=== PATIENT | male | born 2000 | race African-American/Black ===

== ENCOUNTER 2024-07-01 08:15 | Emergency (ER) | payer BC, SELFPAY ==
[2024-07-01 08:17] VITALS: BP 144/84
[2024-07-01 08:30] VITALS: BP 171/89
--- NOTE | 2024-07-01 08:49 | ED.GENMED ---
History of Present Illness
General
Chief Complaint: Chest Pain
Source: patient
Exam Limitations: none
Time Seen by Provider: 07/01/24 08:29
Nursing documentation reviewed up to this point in time: agreed with
History of Present Illness
History of Present Illness:
This 24-year-old male presenting to the emergency department today with concerns of central chest burning that occurred 1 hour prior to arrival to the emergency department. Mild no associated. This occurred after he took his medication awakening
early this morning with back to sleep then woke up with the discomfort denies any referred or radiating pain. Denies any exertional component. Denies similar symptoms in the past. Denies significant shortness of breath at this point, nausea
vomiting.
Past History
Past History
ED Past Medical History: Psychiatric (ADHD, depression) and Other (Seasonal allergies)
ED Past Surgical History: None
Social History
Tobacco: Non-smoker
Review of Systems
Review of Systems
Allergies reviewed?: Yes
All Other Systems: ROS reviewed and negative except as documented in HPI and ROS
Phy Exam
Physical Exam
Physical Exam:
GENERAL: Alert , in no apparent distress
EYE: pupils equal and reactive
NECK: Supple, no significant adenopathy.
ENT: o/p clr, mmm.
CARDIAC: Regular rate and rhythm .
LUNGS: Clear breath sounds bilaterally, no acute respiratory distress, no wheezes/rales/rhonchi
ABDOMEN: Soft, without focal tenderness, no r/g, no cvat
NEUROLOGICAL: Alert and oriented, no focal neuro deficits
SKIN: Warm and dry, skin intact.
MUSCULOSKELETAL: No edema, well perfused.
PSYCH: Normal and appropriate interaction.
Scores
Heart Score for Chest Pain Patients
STEMI patient?: No
History: Slightly or Non-Suspicious
ECG: Normal
Age: </= 45 years
Risk Factors: No Risk Factors
Troponin: </= Normal Limit
Heart Score for Chest Pain Patients: 0
Heart Score Risk: 2.5% MACE over next 6 weeks
Course
Orders/Labs/Results
Orders:
Orders
07/01/24 08:16
EKG [Electrocardiogram (*1)] Urgent
Reason for Study: Chest Pain
07/01/24 08:17
EKG- Treatment ONCE
07/01/24 08:45
Famotidine [Pepcid] 40 mg PO NOW STA
Mag Hydrox/Al Hydrox/Simeth [Maalox] 30 ml Phenobarb/Hyoscy/Atropine/Scop [] 10 ml PO NOW
Chest [CR Chest - 2 Views ] Urgent
Comment:
Reason For Exam: cp central
07/01/24 08:52
Mag Hydrox/Al Hydrox/Simeth [Maalox] 30 ml .ROUTE .STK-MED ONE
Phenobarb/Hyoscy/Atropine/Scop [] 10 ml .ROUTE .STK-MED ONE
Vital Signs
Initial and Last Documented VS:
Initial Vital Signs
Temp Pulse Resp BP Pulse Ox
98.9 F 67 16 144/84 98
07/01/24 08:17 07/01/24 08:17 07/01/24 08:17 07/01/24 08:17 07/01/24 08:17
Last Documented Vital Signs
Temp Pulse Resp BP Pulse Ox
98.9 F 73 16 152/80 98
07/01/24 08:17 07/01/24 09:15 07/01/24 09:15 07/01/24 09:00 07/01/24 09:15
MDM/Problems Addressed
MDM/Problems Addressed:
24-year-old male presenting to the emergency department today with concerns of central chest pain that occurred 1 hour prior to arrival. He did take his medications went back to sleep this morning which he typically does not do. Vital signs on
arrival are normal normal heart and lungs emanation EKG without ischemic findings or significant abnormalities. Patient generally well-appearing. Symptoms seem most likely be consistent with GI cause considering a nonradiating burning discomfort
that occurred after falling asleep after taking his morning medications. EKG is normal making ACS very unlikely especially considering his no additional risk factors and he is young and metabolically healthy. Chest x-ray normal patient
well-appearing here significant improvement of symptoms after receiving famotidine and GI cocktail. Symptoms likely consistent with GI related discomfort. Advised her close outpatient follow-up return precautions given.
*Critical Care Note
Total Time (30-74mins, 75-104mins- exclusive of procedures): Not Applicable
ED Attending Note
-
Portions of this chart may have been created with voice recognition software.� Occasional wrong word or��sound alike� substitutions may have occurred due to the inherent limitations of voice recognition software.
Discharge Plan
Departure
Patient Disposition: Home (Routine Discharge)
Date of Disposition: 07/01/24
Time of Disposition: 10:06
Patient with high blood pressure during this ER visit?: No
Condition: Good
Covid-19: Not Applicable
Discharge Problem:
Chest pain
Instructions: Chest Pain PCP Follow Up
Prescriptions:
No Action
azithromycin 250 MG tablet
250 mg PO Daily Qty: 6 0RF
Rx Instructions:
500mg PO day 1 folloed by 250mg days 2-5
Referrals:
NONE,* [Family Provider] -
Activity Restrictions/Additional Instructions:
You came to the emergency department today with concerns of chest pain. You had a reassuring workup here with normal EKG chest x-ray and examination. You had improvement of symptoms after receiving famotidine here. You can take this medication at
home up to 2 times daily. Please follow close with the primary care doctor within the next week or 2. Return to the emergency department for any worsening, new or concerning symptoms.
Interventions
Interventions:
*Risk Screen - Suicide Last Done: 07/01/24 08:17
*General Assessment Last Done: 07/01/24 08:17
*Neglect/Abuse Screening Last Done: 07/01/24 08:17
ED- Fall Risk Assessment Last Done: 07/01/24 09:17
*ED COVID-19 Vaccine History Last Done: 07/01/24 09:17
ED- Cardiac Assessment Last Done: 07/01/24 09:17
Discharge Date and Time
Print Language: ESTONIAN
[2024-07-01] MEDS: PEPCID 40 MG PO (08:55)
[2024-07-01] MEDS: MAALOX 40 PO (08:55)
[2024-07-01 08:58] VITALS: BMI 40.3
[2024-07-01 09:00] VITALS: BP 152/80
== END 2024-07-01 10:06 | disposition home or self-care (01) ==
LOC: EMR 08:15
PROVIDERS: EMERGENCY PHYSICIAN Student in an Organized Health Care Education/Training Program
DX: R07.89 Other chest pain (principal)
CPT/HCPCS: 99284; 71046; 93005

== ENCOUNTER 2024-10-25 22:19 | Emergency (ER) | payer BC, SELFPAY ==
[2024-10-25 22:21] VITALS: BP 115/77; BMI 38.9
--- NOTE | 2024-10-25 22:28 | ED.GENMED ---
History of Present Illness
General
Chief Complaint: Alcohol Problem
Source: patient and ambulance crew
Exam Limitations: none
Time Seen by Provider: 10/25/24 22:22
Nursing documentation reviewed up to this point in time: agreed with
History of Present Illness
History of Present Illness:
24-year-old male with no reported chronic medical history presents to the ER via EMS intoxicated. Patient reports that he was out drinking and 'it just got away from me and I drank too much.' He said he was drinking a mix of beers with liquor but
cannot recall exactly how much. He began to feel nauseated and vomited and EMS was called to bring her to the hospital. He says that he feels some mild nausea now but he feels a bit better. He says that he just wants to take a nap. He denies any
falls or trauma. He denies any headache, chest pain, abdominal pain. He says that he does not drink every day and does not feel he has a drinking problem, has full-time employment as a [employer]res. He does not feel he needs rehab. He currently
lives with his parents and wishes for us to contact his parents to pick him up.
Past History
Past History
ED Past Medical History: Psychiatric (ADHD, depression) and Other (Seasonal allergies)
ED Past Surgical History: None
Social History
Tobacco: Non-smoker
Review of Systems
Review of Systems
All Other Systems: ROS reviewed and negative except as documented in HPI and ROS
Respiratory: Denies trouble breathing
Cardiac: Denies chest pain
ABD/GI: Reports nausea and vomiting; Denies abdominal pain
: Denies flank pain
Musculoskeletal: Denies neck pain or back pain
Neurological: Denies headache
Phy Exam
Physical Exam
Physical Exam:
General: Awake, alert, oriented x3; clinically intoxicated
Head: Normocephalic, atraumatic
Eyes: Conjunctiva normal, sclera anicteric, pupils equal round and reactive to light bilaterally
Throat: Airway intact, handling secretions
Neck: Trachea midline, no cervical spine tenderness
Lungs: Clear to auscultation bilaterally, no wheezing, rales, rhonchi
Heart: Regular rate and rhythm, no murmurs, gallops, or rubs
Abd: Soft, non distended, nontender
Neuro: No gross deficits
Skin: No signs of trauma
Extremities: Atraumatic, no edema in extremities, warm and well-perfused
Scores
Heart Failure Risk
Heart Failure Risk Score: Not Applicable
Heart Score for Chest Pain Patients
STEMI patient?: Not applicable
Withdrawal Assessment of Alcohol
Withdrawal Assessment Completed?: Not applicable
Course
Orders/Labs/Results
Orders:
Orders
10/25/24 22:23
0.9% Sodium Chloride 1000 ml [Nss] 1,000 ml IV BOLUS
10/25/24 22:27
Bedside Glucose- Treatment ONCE
Encourage PO Hydration-Treatme ONCE
Ondansetron Orally Disint [Zofran Odt (Orally Disintegrating)] 4 mg PO NOW STA
Abnormal Lab Results
10/25/24
22:28
POC Glucose 125 H mg/dl
(70-99)
10/25/24 22:22
10/25/24 22:22
Vital Signs
Initial and Last Documented VS:
Initial Vital Signs
Pulse Resp BP Pulse Ox
66 13 115/77 100
10/25/24 22:21 10/25/24 22:21 10/25/24 22:21 10/25/24 22:21
Last Documented Vital Signs
Pulse Resp BP Pulse Ox
70 22 108/64 92
10/25/24 23:00 10/25/24 23:00 10/25/24 23:00 10/25/24 23:00
MDM/Problems Addressed
Differential Diagnosis Includes:
Alcohol intoxication
MDM/Problems Addressed:
24-year-old male presents to the emergency room intoxicated after admitted alcohol use. Had some vomiting prehospital still has some mild nausea. Treat with Zofran. Encourage fluids. Check glucose. Will contact parents per his request. He is
requesting to hold off on blood work--at this point and do not feel emergent blood work is indicated aside from blood glucose.
Spoke to patient's parents who will come to pick him up.
Father at bedside in ED--will take patient into his responsibility, drive him home and keep an eye on him.
*Pulse Oximetry
Patient hypoxic: no
*Critical Care Note
Total Time (30-74mins, 75-104mins- exclusive of procedures): Not Applicable
Data Reviewed
Source: patient, records and ambulance crew
ED Attending Note
-
Portions of this chart may have been created with voice recognition software.� Occasional wrong word or��sound alike� substitutions may have occurred due to the inherent limitations of voice recognition software.
Discharge Plan
Departure
Patient Disposition: Home (Routine Discharge)
Date of Disposition: 10/25/24
Time of Disposition: 23:18
Patient with high blood pressure during this ER visit?: No
Discharge Problem:
Acute alcohol intoxication
Instructions: Alcohol intoxication - ED discharge instructions
Prescriptions:
No Action
azithromycin 250 MG tablet
250 mg PO Daily Qty: 6 0RF
Rx Instructions:
500mg PO day 1 folloed by 250mg days 2-5
Activity Restrictions/Additional Instructions:
Please drink responsibly in the future--drinking in excess or on a regular basis is very dangerous and can cause serious halfway health issues. If you feel that you need help to stop drinking, you can always come the the ED for help/resources. If
you have any concerns you can always return to the emergency room for reassessment.
Interventions
Interventions:
*Risk Screen - Suicide Last Done: 10/25/24 22:21
*General Assessment Last Done: 10/25/24 22:21
*Neglect/Abuse Screening Last Done: 10/25/24 22:21
*ED- Fall Risk Assessment Last Done: 10/25/24 22:21
*ED COVID-19 Vaccine History Last Done: 10/25/24 22:21
XW-Cyawks-Mzxgsjrnlb Assessment Last Done: 10/25/24 22:42
ED- Neurological Assessment Last Done: 10/25/24 22:42
ED-Psychological Assessment Last Done: 10/25/24 23:12
Discharge Date and Time
Print Language: NAURUAN
[2024-10-25 22:30] LABS: Glucose - Point of Care 125 mg/dl (70-99)
[2024-10-25] MEDS: ZOFRAN ODT (ORALLY DISINTEGRATING) 4 MG PO (22:34)
[2024-10-25 23:00] VITALS: BP 108/64
== END 2024-10-25 23:26 | disposition home or self-care (01) ==
LOC: EMR 22:19
PROVIDERS: EMERGENCY PHYSICIAN Emergency Medicine
DX: F10.129 Alcohol abuse with intoxication, unspecified (principal); Y90.9 Presence of alcohol in blood, level not specified
CPT/HCPCS: 99283; 82962